=== PATIENT | female | born 1945 | race Caucasian/White ===

== ENCOUNTER → 2018-03-06 | Outpatient (CLI) | payer MEDICARE, OTHER ==
--- NOTE | 2018-03-06 11:32 | Diagnostic Imaging Report ---
PROCEDURE:X-RAY ABDOMEN - KUB COMPARISON:05/02/2017. INDICATIONS:CALCULI OF KIDNEY FINDINGS: Bowel gas pattern shows no dilated, air-filled loops of bowel. No suspicious calcifications project over the renal shadows, expected ureteral courses, or urinary bladder. Dystrophic left upper quadrant calcification is unchanged and may reflect a calcified lymph node or splenic granuloma. Left hemipelvic phlebolith. A left internal iliac atherosclerotic calcification also unchanged. No mass effect or organomegaly. Regional skeletal structures are intact. CONCLUSION: No plain radiographic evidence of urolithiasis. No appreciable interval change relative to 05/02/2017. Dictated by: Donte Clveeland M.D. on 03/06/2018 at 11:33 Electronically approved by: Donte Cleveland M.D. on 03/06/2018 at 11:33
== END ==
LOC: RAD 10:04
PROVIDERS: ATTEND Urology
DX: Z87.442 Personal history of urinary calculi (principal)
CPT/HCPCS: 74018

== ENCOUNTER → 2018-11-11 | Outpatient (CLI) | payer MEDICARE, OTHER ==
--- NOTE | 2018-11-11 20:47 | Diagnostic Imaging Report ---
EXAM: Abdomen 1 Views INDICATION: ^CALCULUS OF KIDNEY COMPARISON: None FINDINGS: Moderate to large amount of stool in the colon. No dilated loops of small bowel. No renal calculi. Right pelvic phlebolith. 1.2 cm curvilinear radiodensity in the left lower quadrant, likely ingested material. No abnormal soft tissue masses. Mild degenerative changes in the lumbar spine and pelvis. IMPRESSION: No renal stones. Signed by: Dr. Sunny Donnelly M.D. on 11/11/2018 8:43 PM
== END ==
LOC: RAD 13:29
PROVIDERS: ATTEND Urology
DX: N20.0 Calculus of kidney (principal)
CPT/HCPCS: 74018

== ENCOUNTER → 2019-08-09 | Outpatient (CLI) | payer MEDICARE, OTHER ==
--- NOTE | 2019-08-09 11:02 | Diagnostic Imaging Report ---
Exam: KUB - 2 views Indication: Renal calculi Comparison: Multiple prior KUBs, most recently of 11/11/2018 Findings: Unchanged appearance of calcific densities overlying the bilateral upper pole renal silhouette, measuring up to 7 mm on the right and 4 mm on the left. No new radiographically apparent renal calculi. Nonobstructive bowel gas pattern. No free air. Mild degenerative changes of the visualized spine. Impression: Unchanged appearance of calcific densities overlying the bilateral upper pole renal silhouettes measuring up to 7 mm on the right and 4 mm on the left. On the right, calcified gallstones and/or granulomas could also have this appearance. No new radiographically apparent renal calculi. Signed by: Austin Ferguson MD on 08/09/2019 10:59 AM
== END ==
LOC: RAD 10:12
PROVIDERS: ATTEND Urology
DX: N20.0 Calculus of kidney (principal)
CPT/HCPCS: 74018

== ENCOUNTER → 2019-11-04 | Outpatient (CLI) | payer MEDICARE, OTHER ==
--- NOTE | 2019-11-04 08:59 | Diagnostic Imaging Report ---
EXAMINATION: CT of the abdomen and pelvis without contrast. TECHNIQUE: Spiral CT images of the abdomen and pelvis were performed from the lung bases to the lesser trochanters. No intravenous contrast was given per renal stone protocol. Coronal and sagittal reformatted images were obtained. COMPARISON: Abdominal radiographs, most recently 08/09/2019 CLINICAL HISTORY:Renal calculus DISCUSSION: ABSENCE OF INTRAVENOUS CONTRAST DECREASES SENSITIVITY FOR DETECTION OF FOCAL LESIONS AND VASCULAR PATHOLOGY. ABDOMEN/PELVIS: LOWER THORAX: Large hiatal hernia. Lung bases unremarkable. HEPATOBILIARY:No focal hepatic lesion or intrahepatic biliary ductal dilatation. The gallbladder has been removed. SPLEEN: No splenomegaly. PANCREAS: No focal masses or ductal dilatation. ADRENALS: No adrenal nodules. KIDNEYS/URETERS: There is a punctate nonobstructing calculus in the upper pole of the right kidney seen on series 3 image 57. No additional renal, ureteral, or bladder calculi. Subcentimeter hyperdense lesion in the lower pole of the left kidney is too small to further characterize though likely to represent a proteinaceous or hemorrhagic cyst. PELVIC ORGANS/BLADDER: The urinary bladder is collapsed and poorly evaluated. Uterus is not identified and has presumably been removed. No adnexal mass. PERITONEUM/RETROPERITONEUM: No ascites. No pneumoperitoneum. LYMPH NODES: No pelvic sidewall, retroperitoneal, or mesenteric lymphadenopathy. VESSELS: Limited evaluation without intravenous contrast. Atherosclerotic calcification of the abdominal aorta and branch vessels without aneurysmal dilatation. GI TRACT: The large bowel shows no distention or wall thickening. Gas and fecal material are noted throughout. The appendix has been removed. No small bowel dilatation to suggest obstruction. BONES AND SOFT TISSUES: No osseous destructive lesions. Transitional lumbosacral anatomy with a sided pseudoarthrosis between L5 and S1. Mild degenerative disc changes throughout the lumbar spine. No focal soft tissue abnormalities. IMPRESSION: Punctate nonobstructing right upper pole renal calculus. No additional renal, ureteral, or bladder calculi. Larger suspected calculi described on the comparison abdominal radiograph likely represent summation of dystrophic calcifications along the anterior costochondral junctions of the lower ribs. Probable subcentimeter hyperdense cyst in the lower pole of the left kidney. This may be confirmed by ultrasound. Large hiatal hernia incidentally noted. Signed by: Dr. Donte Cleveland M.D. on 11/04/2019 8:56 AM
== END ==
LOC: CT 08:01
PROVIDERS: ATTEND Urology
DX: N20.0 Calculus of kidney (principal)
CPT/HCPCS: 74176

== ENCOUNTER → 2020-05-16 | Outpatient (CLI) | payer MEDICARE, OTHER ==
--- NOTE | 2020-05-16 10:43 | Diagnostic Imaging Report ---
CT of the abdomen and pelvis, without contrast. History: Right-sided flank pain, history renal calculus. Comparison: None available. Technique: Multidetector CT scanning of the abdomen and pelvis was performed from the level of the lung bases to the inferior pubic rami without the use of contrast material. Coronal and sagittal multiplanar reformations were obtained. RADIATION DOSE: Total DLP: 573.89 mGy*cm Dose modulation, iterative reconstruction, and/or weight based adjustment of the mA/kV was utilized to reduce the radiation dose to as low as reasonably achievable. FINDINGS: The visualized lungs are unremarkable. Imaged portion of the heart demonstrates no significant abnormalities. The liver is normal in size and attenuation on this noncontrast enhanced examination. Subcentimeter hypodensities are identified within the left hepatic lobe which are too small to definitively characterize. The gallbladder is surgically absent. There is no biliary ductal dilatation. Again identified is a moderate sized hiatal hernia. The stomach is otherwise unremarkable. The spleen, pancreas, and bilateral adrenal glands demonstrate a unremarkable noncontrast appearance. The kidneys are normal in size and location. A punctate nonobstructing stone is identified within the upper pole the right kidney (axial image 57), similar to the prior examination. A stable appearing subcentimeter hypodensity is identified arising off the inferior pole the left kidney which is too small to definitively characterize but unchanged from the prior examination likely represents a cyst. There is no evidence for hydronephrosis. No ureteral stone or dilatation is appreciated. The partially distended urinary bladder demonstrates no significant abnormalities. The uterus is surgically absent. No abnormal adnexal masses are identified. The abdominal aorta is normal course and caliber with mild after cirrhotic calcifications. Please note evaluation the bowel is limited without the use of enteric contrast material. The visualized loops of small and large bowel demonstrate no evidence of obstruction or inflammation. The appendix is surgically absent. There is no ascites or intraperitoneal free air. No abnormally enlarged lymph nodes are identified within the abdomen or pelvis. The osseous structures demonstrate stable degenerative changes without evidence for acute fracture or destructive process. The extraperitoneal soft tissues are unremarkable. IMPRESSION: 1. Stable appearing punctate nonobstructing right upper pole renal calculus again identified. No evidence for hydronephrosis or obstructive uropathy. 2. Stable hiatal hernia. 3. Additional stable findings as above. Signed by: Dr. Booker Fraga MD on 05/16/2020 10:39 AM
== END ==
LOC: CT 08:57
PROVIDERS: ATTEND Urology
DX: N20.0 Calculus of kidney (principal)
CPT/HCPCS: 74176

== ENCOUNTER → 2020-10-31 | Outpatient (CLI) | payer MEDICARE, OTHER | LOC: RAD 10:16 | PROVIDERS: ATTEND Urology | DX: N20.0 Calculus of kidney (principal) | CPT/HCPCS: 74018 ==

== ENCOUNTER → 2021-02-01 | Outpatient (CLI) | payer MEDICARE, OTHER | LOC: RAD 08:38 | PROVIDERS: ATTEND Urology | DX: N20.0 Calculus of kidney (principal) | CPT/HCPCS: 74018 ==

== ENCOUNTER → 2022-05-31 | Outpatient (CLI) | payer MEDICARE, OTHER | LOC: RAD 10:42 | PROVIDERS: ATTEND Urology | DX: N20.0 Calculus of kidney (principal) | CPT/HCPCS: 74018 ==